=== PATIENT | male | born 1985 | race Caucasian/White ===

== ENCOUNTER 2017-07-14 17:27 | Emergency (ER) | payer OTHER ==
[~2017-07-14] VITALS: Ht 182.9 cm; Wt 72.6 kg
[2017-07-14 17:33] VITALS: BP 128/73; Ht 182.9 cm; Wt 72.6 kg
== END 2017-07-14 19:15 | disposition home or self-care (01) ==
LOC: ED 17:27
DX: S62.317A Displaced fracture of base of fifth metacarpal bone, left hand, initial encounter for closed fracture (principal); Z88.5 Allergy status to narcotic agent; W21.03XA Struck by baseball, initial encounter; Y93.64 Activity, baseball; Y92.89 Other specified places as the place of occurrence of the external cause; Y99.8 Other external cause status
CPT/HCPCS: Q0092